=== PATIENT | female | born 1990 | race Caucasian/White ===

== ENCOUNTER 2023-10-15 08:22 | Emergency (ER) | payer OTHER ==
[~2023-10-15] VITALS: Ht 157.4 cm; Wt 65.8 kg
[2023-10-15] MEDS ORDERED: CLINDAMYCIN HCL 300 MG CAPSULE PO ONE (08:45)
[2023-10-15] MEDS ORDERED: Acetaminophen/Oxycodone 5 MG/325 MG TABLET PO ONE (08:45)
[2023-10-15] MEDS ORDERED: MELOXICAM15 MG PO (08:48)
[2023-10-15] MEDS ORDERED: CLINDAMYCIN HC300 MG PO (08:48)
== END 2023-10-15 08:56 | disposition home or self-care (01) ==
LOC: ED 08:22
DX: K04.7 Periapical abscess without sinus (principal); K02.9 Dental caries, unspecified; R22.9 Localized swelling, mass and lump, unspecified; Z88.0 Allergy status to penicillin